=== PATIENT | male | born 1995 | race African-American/Black ===

== ENCOUNTER 2019-01-26 23:15 | Emergency (ER) | payer SELFPAY ==
[~2019-01-26] VITALS: Ht 170.2 cm; Wt 61.2 kg
--- NOTE | 2019-01-26 23:45 | NUR ---
Dr. King at bedside for MSE.
--- NOTE | 2019-01-27 00:15 | NUR ---
Pt out of ER for CT.
--- NOTE | 2019-01-27 00:31 | NUR ---
Pt back to ER from CT.
--- NOTE | 2019-01-27 00:45 | NUR ---
Patient discharged to home in stable conditon. Written and verbal after care instructions given. Patient verbalizes understanding of instructions. Pt ambulated out of ER with steady gait, no acute signs of distress, VSS, all belongings taken.
[2019-01-27 00:46] VITALS: BP 105/60
== END 2019-01-27 00:46 | disposition home or self-care (01) ==
LOC: ER 23:18
DX: S16.1XXA Strain of muscle, fascia and tendon at neck level, initial encounter (principal); R51 Headache; V43.52XA Car driver injured in collision with other type car in traffic accident, initial encounter; Y92.89 Other specified places as the place of occurrence of the external cause; Y93.89 Activity, other specified; Y99.8 Other external cause status
CPT/HCPCS: 70450; 72125; A4663